=== PATIENT | female | born 1995 ===

== ENCOUNTER 2017-08-05 19:21 | Emergency (ER) | payer SELFPAY ==
--- NOTE | 2017-08-05 19:58 | ED ---
Grant Morales Tecjoon, scribperlita for Citlaly Yates MD on 08/05/17 at 1956 . Abdominal Pain/Female - HPI Summary HPI Summary: This patient is a 21 year old female BIBA to [facility] with a chief complaint of epigastric abd pain since approx. an hour ago. Patient stated that the pain came in waves, every few minutes of really strong pain, to the point where she could barely breathe. The pain is rated 1/10 in severity currently. Symptoms aggravated by nothing. Symptoms alleviated by nothing. The patient treated the pain with nothing HELP AID. Patient denies vomiting, diarrhea, belching. Patient states that she has no pain currently. - History of Current Complaint Chief Complaint: EDAbdPain Stated Complaint: ABD PAIN Time Seen by Provider: 08/05/17 19:29 Hx Obtained From: Patient Onset/Duration: Lasting Hours, Resolved Timing: Intermittent Episode Lasting - every few minutes Severity Initially: Moderate Severity Currently: None Pain Intensity: 1 Pain Scale Used: 0-10 Numeric Location: Epigastric Radiates: No Aggravating Factor(s): Nothing Alleviating Factor(s): Nothing Associated Signs and Symptoms: Positive: Other: - vomiting, diarrhea, belching Allergies/Adverse Reactions: Allergies Allergy/AdvReac Type Severity Reaction Status Date / Time No Known Allergies Allergy Verified 08/05/17 19:49 PMH/Surg Hx/FS Hx/Imm Hx Previously Healthy: Yes Cardiovascular History: Denies: Hx Hypertension Opthamlomology History: Denies: Hx Legally Blind EENT History: Denies: Hx Deafness Infectious Disease History: No Infectious Disease History: Denies: Traveled Outside the [place] in Last 30 Days - Family History Known Family History: Negative: Hypertension - Social History Occupation: Student Lives: Dormitory/Roommates Alcohol Use: None Hx Substance Use: No Substance Use Type: Reports: None Hx Tobacco Use: No Smoking Status (MU): Never Smoked Tobacco Review of Systems Negative: Fever Positive: Abdominal Pain. Negative: Vomiting, Diarrhea All Other Systems Reviewed And Are Negative: Yes Physical Exam - Summary Physical Exam Summary: VITAL SIGNS: Reviewed. GENERAL: Patient is a well-developed and nourished female who is lying comfortable in the stretcher. Patient is not in any acute respiratory distress. HEAD AND FACE: No signs of trauma. No ecchymosis, hematomas or skull depressions. No sinus tenderness. EYES: PERRLA, EOMI x 2, No injected conjunctiva, no nystagmus. EARS: Hearing grossly intact. Ear canals and tympanic membranes are within normal limits. MOUTH: Oropharynx within normal limits. NECK: Supple, trachea is midline, no adenopathy, no JVD, no carotid bruit, no c- spine tenderness, neck with full ROM. CHEST: Symmetric, no tenderness at palpation LUNGS: Clear to auscultation bilaterally. No wheezing or crackles. CVS: Regular rate and rhythm, S1 and S2 present, no murmurs or gallops appreciated. ABDOMEN: Soft, non-tender. No signs of distention. No rebound no guarding, and no masses palpated. Bowel sounds are normal. EXTREMITIES: FROM in all major joints, no edema, no cyanosis or clubbing. NEURO: Alert and oriented x 3. No acute neurological deficits. Speech is normal and follows commands. SKIN: Dry and warm Triage Information Reviewed: Yes Vital Signs On Initial Exam: Initial Vitals Temp Pulse Resp BP Pulse Ox 98.3 F 83 15 96/50 100 08/05/17 19:47 08/05/17 19:47 08/05/17 19:47 08/05/17 19:47 08/05/17 19:47 Vital Signs Reviewed: Yes Diagnostics - Vital Signs Vital Signs Temp Pulse Resp BP Pulse Ox 08/05/17 19:47 98.3 F 83 15 96/50 100 - Laboratory Lab Statement: Any lab studies that have been ordered have been reviewed, and results considered in the medical decision making process. Abdominal Pain Fem Course/Dx - Course Course Of Treatment: This patient is a 21 year old female BIBA to [facility] with a chief complaint of epigastric abd pain since approx. an hour ago. Patient stated that the pain came in waves, every few minutes of really strong pain, to the point where she could barely breathe. Patient states that she has no pain currently. Patients exam was unremarkable. Patient will be discharged with a diagnosis for esophageal spasm and followup with PCP. The patient is agreeable with this plan. - Diagnoses Provider Diagnoses: Esophageal spasm Discharge - Discharge Plan Condition: Stable Disposition: HOME Patient Education Materials: Esophageal Spasm (ED) Additional Instructions: Return to the ED for any new or worsening symptoms. The documentation as recorded by the Grant young Tecjoon accurately reflects the service I personally performed and the decisions made by me, Citlaly Yates MD.
[2017-08-05 20:16] VITALS: BP 100/61
== END 2017-08-05 20:16 | disposition home or self-care (01) ==
LOC: ED 19:21
DX: K22.4 Dyskinesia of esophagus (principal); R11.10 Vomiting, unspecified; R19.7 Diarrhea, unspecified
CPT/HCPCS: 99282